=== PATIENT | male | born 1950 | race African-American/Black ===

== ENCOUNTER 2019-12-22 12:10 | Emergency (ER) | payer OTHER ==
[~2019-12-22] VITALS: Ht 185.4 cm; Wt 107.0 kg
[2019-12-22 14:50] LABS: BASOPHILS % 0.4 % (0.0-2.0); EOSINOPHILS % 0.1 % (0.0-5.0); HEMATOCRIT. 40.6 % (42.0-52.0); HEMOGLOBIN. 13.4 g/dL (14.0-18.0); LYMPHOCYTES % 12.2 % (20.0-50.0); MEAN CORPUSCULAR VOLUME 87.8 fL (80.0-94.0); MEAN PLATELET VOLUME 10.4 fl (7.4-10.4); MONOCYTES % 6.7 % (2.0-8.0); NEUTROPHILS % 80.6 % (40.0-76.0); PLATELET 210 x1000/uL (130-400); RED BLOOD CELL COUNT 4.62 mill/uL (4.7-6.1); RED CELL DISTRIBUTION WIDTH 14.1 % (11.6-14.6)
[2019-12-22 15:57] LABS: CHLORIDE 104 mEq/L (98-107)
[2019-12-22 18:28] VITALS: BP 110/69
== END 2019-12-22 18:31 | disposition short-term general hospital (02) ==
LOC: EDBD 12:18 → ER 12:18 → EDBEDREQ 16:13 → ER 18:31 → CANBEDREQ 19:49
DX: R42 Dizziness and giddiness (principal); I11.0 Hypertensive heart disease with heart failure; I50.9 Heart failure, unspecified; I48.92 Unspecified atrial flutter; N28.9 Disorder of kidney and ureter, unspecified; D72.829 Elevated white blood cell count, unspecified; J44.9 Chronic obstructive pulmonary disease, unspecified; E11.9 Type 2 diabetes mellitus without complications; Z98.890 Other specified postprocedural states
CPT/HCPCS: 36415; 71045; 80053; 82962; 83880; 84484; 85025; 93005; 99285